=== PATIENT | female | born 1965 | race Caucasian/White ===

== ENCOUNTER 2021-01-24 17:00 | Outpatient (RCR) | payer BC | END 2021-01-28 | LOC: PT 17:00 | PROVIDERS: ATTEND Specialist | DX: M75.02 Adhesive capsulitis of left shoulder (principal) ==

== ENCOUNTER 2021-02-14 17:00 | Outpatient (RCR) | payer BC | END 2021-02-27 | LOC: PT 17:00 | PROVIDERS: ATTEND Specialist | DX: M75.02 Adhesive capsulitis of left shoulder (principal) ==